=== PATIENT | female | born 2000 | race Caucasian/White ===

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

== ENCOUNTER 2019-11-14 19:43 | Emergency (ER) | payer BC, MEDICAID ==
[~2019-11-14] VITALS: Ht 154.9 cm; Wt 65.4 kg
--- NOTE | 2019-11-14 20:02 | NUR ---
ASSESSMENT MADE. CHART UP FOR MD TO SEE.
--- NOTE | 2019-11-14 20:35 | NUR ---
PA AT BEDSIDE
--- NOTE | 2019-11-14 20:49 | NUR ---
PATIENT DISCHARGED WITH PRESCRIPTION AND INSTRUCTION. VERBALIZED UNDERSTANDING.
[2019-11-14 20:51] VITALS: BP 123/58
== END 2019-11-14 20:53 | disposition home or self-care (01) ==
LOC: ED 20:45
DX: O26.892 Other specified pregnancy related conditions, second trimester (principal); H57.12 Ocular pain, left eye; Z3A.18 18 weeks gestation of pregnancy
CPT/HCPCS: 99283

== ENCOUNTER 2019-11-25 22:14 | Emergency (ER) | payer MEDICAID ==
[~2019-11-25] VITALS: Ht 154.9 cm; Wt 67.4 kg
[2019-11-25 22:23] VITALS: BP 112/72
--- NOTE | 2019-11-25 22:33 | NUR ---
PA AT BEDSIDE TO ASSESS PT
[2019-11-25] MEDS ORDERED: DIPHENHYDRAMINE 25 MG CAPSULE ONE (22:40)
[2019-11-25] MEDS ORDERED: FAMOTIDINE 20 MG TABLET ONE (22:40)
--- NOTE | 2019-11-25 22:43 | NUR ---
PT MEDICATED PER MAR, 5 RIGHTS VERIFIED
[2019-11-25] MEDS ORDERED: DIPHENHYDRAMINE 25 MG CAPSULE PO ONE (23:00)
[2019-11-25] MEDS ORDERED: FAMOTIDINE 20 MG TABLET PO ONE (23:00)
== END 2019-11-25 23:14 | disposition home or self-care (01) ==
LOC: ED 22:45
DX: L24.3 Irritant contact dermatitis due to cosmetics (principal)
CPT/HCPCS: 99283; Q0163

== ENCOUNTER 2020-01-04 18:28 | Outpatient (CLI) | payer MEDICAID ==
[~2020-01-04] VITALS: Ht 154.9 cm; Wt 66.8 kg
[2020-01-04 18:46] VITALS: BP 99/55
[2020-01-04] MEDS ORDERED: CALCIUM CARBONATE 500 MG TAB.CHEW ONE (19:11)
== END 2020-01-04 19:35 | disposition home or self-care (01) ==
LOC: LDOP 18:28
PROVIDERS: ATTEND Obstetrics & Gynecology
DX: O26.892 Other specified pregnancy related conditions, second trimester (principal); R10.9 Unspecified abdominal pain; Z3A.25 25 weeks gestation of pregnancy
CPT/HCPCS: 99211; G0463